=== PATIENT | female | born 1990 | race Caucasian/White ===

== ENCOUNTER 2021-11-25 09:37 | Inpatient (IN) ==
[2021-11-25] MEDS ORDERED: PHENERGAN INJ 25 MG IM PRN (10:44)
[2021-11-25] MEDS ORDERED: PITOCIN IVP ONE (10:44)
[2021-11-25] MEDS ORDERED: REGLAN INJ 10 MG VIAL IVP PRN (10:44)
[2021-11-25] MEDS ORDERED: MAGNESIUM SULFATE 40 GRAMS IV IV PRN (10:44)
[2021-11-25] MEDS ORDERED: D5 LR + PITOCIN 10 UNITS/L 10 UNITS/1,000 ML BAG IV PRN (10:44)
[2021-11-25] MEDS ORDERED: PITOCIN ONE (10:48)
[2021-11-25] MEDS ORDERED: D5 1/2 NS 1,000 mL + PITOCIN 20 UNITS/L IV 20 UNITS/1,000 ML BAG IV ONE (10:49)
[2021-11-25] MEDS ORDERED: MAGNESIUM SULFATE 40 GRAMS IV 40 G/1,000 ML BAG IV ONE (11:20)
[2021-11-25] MEDS ORDERED: ZOFRAN INJ 4 MG VIAL ONE (11:25)
--- NOTE | 2021-11-25 11:29 | US ---
HISTORYReason For StudySTUDYOB GREATER THAN 14 WEEKS LIMITCOMPARISONNoneTECHNIQUEOb 2/3 trimester ultrasound.FINDINGSSingle intrauterine gestational with cephalic presentation. Placental location is posterior. heart rate 152 beats per minute. Three-vessel cord present with S/D ratio 3.69. Normal amount of amniotic fluid visually. Four-chamber heart, kidneys, stomach, bladder, and spine appear normal within the limits of the study on the images provided.BPD 5.3 cm 22 weeks 2 days.HC 20 cm 22 weeks 1 day.AC 18.2 cm 23 weeks 1 day.FL 3.7 cm 22 weeks 0 days.Estimated gestational age 22 weeks 3 days.Estimated weight 514 grams.IMPRESSIONViable appearing with sizes and dates as above.Electronically signed by: Denton Ohara (Nov 25, 2021 11:27:47)
[2021-11-25] MEDS ORDERED: BETADINE SOLN TOP ONE (11:46)
[2021-11-25] MEDS ORDERED: D5 1/2 NS 1,000 ML 1,000 ML with PITOCIN 20 UNITS IV PRN ×6 (12:36→13:42)
[2021-11-25] MEDS ORDERED: D5 1/2 NS 1,000 ML 1,000 ML with PITOCIN 20 UNITS IV SCH ×2 (13:10)
[2021-11-25] MEDS: LR 1,000 ML IV 1,000 ML IV SCH ×2 (13:40→20:56)
[2021-11-25] MEDS ORDERED: DERMOPLAST PAIN RELIEF SPRAY TOP PRN (13:42)
[2021-11-25] MEDS ORDERED: HYPERRHO S/D (or RHOGAM) IM PRN (13:42)
[2021-11-25] MEDS ORDERED: MILK OF MAGNESIA PO PRN (13:42)
[2021-11-25] MEDS ORDERED: AMBIEN PO PRN (13:42)
[2021-11-25] MEDS: MOTRIN TAB 800 MG PO PRN ×2 (14:55→22:50)
[2021-11-25] MEDS ORDERED: NICOTINE PATCH TD ONE (16:24)
[2021-11-25] MEDS: NICOTINE PATCH TD SCH (16:29)
[2021-11-25] MEDS ORDERED: LR 1,000 ML IV 1,000 ML with PITOCIN 20 UNITS IV ONE ×2 (20:54)
[2021-11-26] MEDS ORDERED: LR 1,000 ML IV 1,000 ML IV SCH (05:00)
[2021-11-26 06:59] LABS: HEMOGLOBIN 9.8 g/dL (12.0-16.0)
[2021-11-26] MEDS: NICOTINE PATCH TD SCH (08:46)
[2021-11-26] MEDS: MOTRIN TAB 800 MG PO PRN (08:55)
[2021-11-26] MEDS ORDERED: PRENATAL PLUS PO SCH (09:00)
[2021-11-26 10:12] VITALS: BP 95/51
[2021-11-30 11:36] LABS: SICKLE CELL SOLUBILITY Not Performed
== END 2021-11-26 14:00 | disposition home or self-care (01) | DRG 805 ==
LOC: LD 09:37 → MED/SURG 14:08
PROVIDERS: ADMIT Obstetrics & Gynecology Obstetrics; ATTEND Obstetrics & Gynecology Obstetrics
DX: O45.8X2 Other premature separation of placenta, second trimester; Z98.51 Tubal ligation status; O60.12X0 Preterm labor second trimester with preterm delivery second trimester, not applicable or unspecified; Z37.0 Single live birth; O99.332 Smoking (tobacco) complicating pregnancy, second trimester; F14.90 Cocaine use, unspecified, uncomplicated; F20.9 Schizophrenia, unspecified; F12.99 Cannabis use, unspecified with unspecified cannabis-induced disorder; Z20.822 Contact with and (suspected) exposure to COVID-19; O99.342 Other mental disorders complicating pregnancy, second trimester; Z3A.22 22 weeks gestation of pregnancy; O99.322 Drug use complicating pregnancy, second trimester